=== PATIENT | female | born 1990 ===

== ENCOUNTER 2020-10-02 07:12 | Emergency (ER) | payer OTHER ==
[~2020-10-02] VITALS: Ht 160 cm; Wt 44.7 kg
[2020-10-02 07:14] VITALS: BP 126/87
--- NOTE | 2020-10-02 07:50 | NUR ---
CXR AT BEDSIDE
[2020-10-02] MEDS ORDERED: PLEASE ENTER ALLERGIES MC SCH (08:00)
[2020-10-02] MEDS ORDERED: IBUPROFEN 200 MG TABLET PO ONE (08:00)
[2020-10-02] MEDS ORDERED: IBUPROFEN 200 MG TABLET ONE (08:02)
== END 2020-10-02 08:16 | disposition home or self-care (01) ==
LOC: ED 07:30
DX: R05 Cough (principal); R07.89 Other chest pain
CPT/HCPCS: 71045; 93005; 99283